=== PATIENT | male | born 1975 | race African-American/Black ===

== ENCOUNTER 2022-06-14 08:04 | Inpatient (IN) | payer MEDICAID, OTHER ==
[~2022-06-14] VITALS: Ht 182.9 cm; Wt 155.6 kg
[2022-06-14] MEDS ORDERED: MORPHINE SULFATE 4 MG/ML CPJ (NOT FOR IM USE) IV STA (08:10)
[2022-06-14] MEDS ORDERED: ONDANSETRON HCL 4MG/2ML INJ IV STA (08:10)
[2022-06-14] MEDS ORDERED: NITROGLYCERIN OINT 1GM/INCH UDPKT TD ONE (08:15)
[2022-06-14 09:56] LABS: BASOPHILS % 0.5 % (0.0-2.0); EOSINOPHILS % 0.7 % (0.0-5.0); HEMOGLOBIN. 13.6 g/dL (14.0-18.0); LYMPHOCYTES % 17.5 % (20.0-50.0); MEAN CORPUSCULAR HEMOGLOBIN 26.4 pg (28.0-32.0); MEAN CORPUSCULAR VOLUME 81.4 fL (80.0-94.0); MEAN PLATELET VOLUME 7.5 fl (7.4-10.4); NEUTROPHILS % 72.3 % (40.0-76.0); PLATELET 238 x1000/uL (130-400); RED BLOOD CELL COUNT 5.16 mill/uL (4.7-6.1); RED CELL DISTRIBUTION WIDTH 17.1 % (11.6-14.6)
[2022-06-14 10:02] LABS: CHLORIDE 113 mEq/L (98-107)
[2022-06-14] MEDS ORDERED: FUROSEMIDE 40MG/4ML VIAL IVP ONE (12:45)
[2022-06-14] MEDS ORDERED: ONDANSETRON HCL 4MG/2ML INJ IV NR (13:45)
[2022-06-14] MEDS ORDERED: NITROGLYCERIN OINT 1GM/INCH UDPKT TD NR (13:45)
[2022-06-14] MEDS ORDERED: MORPHINE SULFATE 4 MG/ML CPJ (NOT FOR IM USE) IV NR (13:45)
[2022-06-14] MEDS ORDERED: ACETAMINOPHEN 325MG TABLET PO PRN ×2 (15:00)
[2022-06-14] MEDS ORDERED: ONDANSETRON HCL 4MG/2ML INJ IV PRN (15:00)
[2022-06-14] MEDS ORDERED: LORAZEPAM 0.5MG TABLET PO PRN (15:00)
[2022-06-14] MEDS ORDERED: DOCUSATE SODIUM 100MG CAPSULE PO PRN (15:00)
[2022-06-14] MEDS ORDERED: IPRATROPIUM/ALBUTEROL 0.5-3(2.5)MG/3ML NEB HHN PRN (15:00)
[2022-06-14] MEDS ORDERED: NALOXONE HCL 0.4MG/ML VIAL IV PRN (15:15)
[2022-06-14] MEDS ORDERED: SPIRONOLACTONE 25MG TABLET PO SCH (15:45)
[2022-06-14] MEDS: HYDROCODONE/ACETAMINOPHEN 5/325MG TABLET PO PRN ×2 (16:45→21:24)
[2022-06-14] MEDS: FUROSEMIDE 40MG/4ML VIAL IVP SCH (17:18)
[2022-06-14 19:10] LABS: *AMPHETAMINES SCREEN URINE NEGATIVE (NEGATIVE); *BARBITURATES SCREEN URINE NEGATIVE (NEGATIVE); *BENZODIAZEPINES SCREEN URINE NEGATIVE (NEGATIVE); *COCAINE SCREEN URINE NEGATIVE (NEGATIVE); CANNABINOID URINE SCREEN PRESUMTIVE POSITIVE (NEGATIVE); METHADONE URINE SCREEN NEGATIVE (NEGATIVE); OPIATES URINE SCREEN PRESUMTIVE POSITIVE (NEGATIVE); PHENCYCLIDINE URINE SCREEN NEGATIVE (NEGATIVE)
[2022-06-14 20:00] VITALS: BP 157/110
[2022-06-14] MEDS: CLONIDINE 0.1MG TABLET PO PRN (21:25)
[2022-06-14] MEDS ORDERED: ALBU18HF2 INH (23:26)
[2022-06-14] MEDS ORDERED: FURO40TA5 PO (23:26)
[2022-06-14] MEDS ORDERED: ATOR40TA70 PO (23:26)
[2022-06-14] MEDS ORDERED: CARV3.1242 PO (23:26)
[2022-06-14] MEDS ORDERED: SPIR25TA6 PO (23:26)
[2022-06-14] MEDS ORDERED: ASPI-1406 PO (23:26)
[2022-06-14] MEDS ORDERED: FURO20TA4 PO (23:26)
[2022-06-14] MEDS ORDERED: AMLO5TAB88 PO (23:26)
[2022-06-14] MEDS ORDERED: HYDR-4134 PO (23:26)
[2022-06-15] VITALS: BP 135/93
[2022-06-15 04:00] VITALS: BP 146/110
[2022-06-15 07:20] LABS: BASOPHILS % 0.5 % (0.0-2.0); EOSINOPHILS % 1.2 % (0.0-5.0); HEMATOCRIT. 38.6 % (42.0-52.0); HEMOGLOBIN. 12.5 g/dL (14.0-18.0); LYMPHOCYTES % 24.2 % (20.0-50.0); MEAN CORPUSCULAR HEMOGLOBIN 26.5 pg (28.0-32.0); MEAN CORPUSCULAR VOLUME 81.8 fL (80.0-94.0); MONOCYTES % 10.5 % (2.0-8.0); NEUTROPHILS % 63.6 % (40.0-76.0); PLATELET 231 x1000/uL (130-400); RED BLOOD CELL COUNT 4.73 mill/uL (4.7-6.1); RED CELL DISTRIBUTION WIDTH 17.1 % (11.6-14.6)
[2022-06-15 07:47] LABS: CHLORIDE 106 mEq/L (98-107)
[2022-06-15 08:00] VITALS: BP 140/104
[2022-06-15] MEDS ORDERED: LOSARTAN POTASSIUM 25 MG TABLET PO SCH (09:00)
[2022-06-15] MEDS ORDERED: ASPIRIN 81MG TABLET PO SCH (09:00)
[2022-06-15] MEDS: LOSARTAN POTASSIUM 50 MG TABLET PO SCH (10:10)
[2022-06-15] MEDS: FUROSEMIDE 40MG/4ML VIAL IVP SCH ×2 (10:10→16:40)
[2022-06-15] MEDS: SPIRONOLACTONE 50MG TABLET PO SCH (10:11)
[2022-06-15] MEDS: HYDROCODONE/ACETAMINOPHEN 5/325MG TABLET PO PRN ×3 (10:18→21:21)
[2022-06-15 12:00] VITALS: BP 147/108
[2022-06-15] MEDS ORDERED: PANTOPRAZOLE SODIUM 40 MG/VIAL IV SCH (12:15)
[2022-06-15 15:56] VITALS: BP 141/96
[2022-06-15 18:24] LABS: HEMATOCRIT 39.4 % (42.0-52.0); HEMOGLOBIN 12.5 g/dL (14.0-18.0)
[2022-06-15 18:36] LABS: TOTAL IRON BINDING CAPACITY 422 ug/dL (250-450)
[2022-06-15 18:57] LABS: FOLIC ACID (FOLATE) SERUM 13.8 ng/mL (>5.38)
[2022-06-15 20:00] VITALS: BP 146/102
[2022-06-15] MEDS: PANTOPRAZOLE SODIUM 40 MG/VIAL IV SCH (21:20)
[2022-06-15 22:54] LABS: HEMATOCRIT 39.2 % (42.0-52.0); HEMOGLOBIN 12.4 g/dL (14.0-18.0)
[2022-06-15 23:04] LABS: INR 1.1; PROTHROMBIN TIME 11.4 sec (9.6-11.0)
[2022-06-16] VITALS (7 sets, daily range): BP systolic 142–163; BP diastolic 86–114
[2022-06-16] MEDS: CLONIDINE 0.1MG TABLET PO PRN (00:58)
[2022-06-16] MEDS: HYDROCODONE/ACETAMINOPHEN 5/325MG TABLET PO PRN ×3 (06:11→20:47)
[2022-06-16 06:18] LABS: CHLORIDE 105 mEq/L (98-107)
[2022-06-16 06:30] LABS: BASOPHILS % 0.5 % (0.0-2.0); EOSINOPHILS % 1.2 % (0.0-5.0); HEMOGLOBIN. 12.6 g/dL (14.0-18.0); LYMPHOCYTES % 25.3 % (20.0-50.0); MEAN CORPUSCULAR HEMOGLOBIN 26.3 pg (28.0-32.0); MEAN CORPUSCULAR VOLUME 81.4 fL (80.0-94.0); MEAN PLATELET VOLUME 7.9 fl (7.4-10.4); MONOCYTES % 9.8 % (2.0-8.0); NEUTROPHILS % 63.2 % (40.0-76.0); PLATELET 224 x1000/uL (130-400); RED BLOOD CELL COUNT 4.79 mill/uL (4.7-6.1); RED CELL DISTRIBUTION WIDTH 16.6 % (11.6-14.6)
[2022-06-16] MEDS: PANTOPRAZOLE SODIUM 40 MG/VIAL IV SCH ×2 (08:22→20:42)
[2022-06-16] MEDS: SPIRONOLACTONE 50MG TABLET PO SCH (08:22)
[2022-06-16] MEDS: FUROSEMIDE 40MG/4ML VIAL IVP SCH ×2 (08:22→16:16)
[2022-06-16] MEDS: LOSARTAN POTASSIUM 50 MG TABLET PO SCH (08:22)
[2022-06-16 09:46] LABS: HEMATOCRIT 39.2 % (42.0-52.0); HEMOGLOBIN 12.6 g/dL (14.0-18.0)
[2022-06-16] MEDS: BISACODYL 5MG TABLET PO SCH ×2 (16:30→20:42)
[2022-06-16] MEDS: METOCLOPRAMIDE HCL 10MG/2ML VIAL IV SCH ×2 (16:30→20:42)
[2022-06-16] MEDS: SORBITOL 70% SOLN 30ML PO SCH ×2 (16:30→20:47)
[2022-06-16 17:08] LABS: HEMATOCRIT 39.3 % (42.0-52.0); HEMOGLOBIN 12.7 g/dL (14.0-18.0)
[2022-06-16 23:56] LABS: HEMOGLOBIN 12.5 g/dL (14.0-18.0)
[2022-06-17] VITALS: BP 134/103
[2022-06-17] MEDS: BISACODYL 5MG TABLET PO SCH ×2 (00:15→05:36)
[2022-06-17] MEDS: METOCLOPRAMIDE HCL 10MG/2ML VIAL IV SCH ×2 (00:15→05:36)
[2022-06-17] MEDS: SORBITOL 70% SOLN 30ML PO SCH ×2 (00:45→05:35)
[2022-06-17 03:12] LABS: HEMATOCRIT. 39.8 % (42.0-52.0); HEMOGLOBIN. 12.7 g/dL (14.0-18.0); MEAN CORPUSCULAR HEMOGLOBIN 25.9 pg (28.0-32.0); MEAN CORPUSCULAR VOLUME 80.9 fL (80.0-94.0); MEAN PLATELET VOLUME 7.6 fl (7.4-10.4); PLATELET 203 x1000/uL (130-400); RED BLOOD CELL COUNT 4.91 mill/uL (4.7-6.1)
[2022-06-17 03:19] LABS: CHLORIDE 104 mEq/L (98-107); PROTHROMBIN TIME 11.1 sec (9.6-11.0)
[2022-06-17 04:00] VITALS: BP 113/93
[2022-06-17] MEDS: HYDROCODONE/ACETAMINOPHEN 5/325MG TABLET PO PRN ×3 (05:43→20:58)
[2022-06-17 06:17] LABS: PLATELET ESTIMATE NORMAL
[2022-06-17 08:00] VITALS: BP 130/77
[2022-06-17] MEDS: PANTOPRAZOLE SODIUM 40 MG/VIAL IV SCH ×2 (08:16→20:57)
[2022-06-17] MEDS: SPIRONOLACTONE 50MG TABLET PO SCH (08:16)
[2022-06-17] MEDS: LOSARTAN POTASSIUM 50 MG TABLET PO SCH (08:16)
[2022-06-17] MEDS: FUROSEMIDE 40MG/4ML VIAL IVP SCH ×2 (08:16→16:26)
[2022-06-17 12:00] VITALS: BP 141/101
[2022-06-17] MEDS ORDERED: PROPOFOL 200MG/20ML VIAL IV ONE (13:29)
[2022-06-17] MEDS ORDERED: LIDOCAINE HCL 1% 20ML VIAL (Pyxis) INJ ONE (13:29)
[2022-06-17] MEDS ORDERED: HYDROMORPHONE HCL/PF 2MG/ML CPJ IV PRN (14:00)
[2022-06-17] MEDS ORDERED: LABETALOL 5MG/ML SYR 20 MG/4 ML SYRINGE IV PRN (14:00)
[2022-06-17] MEDS ORDERED: ONDANSETRON HCL 4MG/2ML INJ IV PRN (14:00)
[2022-06-17] MEDS ORDERED: MEPERIDINE HCL/PF 25MG/ML CPJ IV PRN (14:00)
[2022-06-17] MEDS: CLONIDINE 0.1MG TABLET PO PRN (14:41)
[2022-06-17 15:54] VITALS: BP 135/97
[2022-06-17 20:00] VITALS: BP 133/70
[2022-06-17] MEDS: HEMORRHOIDAL SUPP PR SCH (21:00)
[2022-06-18] VITALS: BP 137/97
[2022-06-18] MEDS: HYDROCODONE/ACETAMINOPHEN 5/325MG TABLET PO PRN ×2 (00:59→08:50)
[2022-06-18 04:00] VITALS: BP 150/95
[2022-06-18 07:41] LABS: BASOPHILS % 0.6 % (0.0-2.0); EOSINOPHILS % 1.9 % (0.0-5.0); HEMOGLOBIN. 12.6 g/dL (14.0-18.0); LYMPHOCYTES % 24.4 % (20.0-50.0); MEAN CORPUSCULAR HEMOGLOBIN 25.9 pg (28.0-32.0); MEAN PLATELET VOLUME 8.3 fl (7.4-10.4); MONOCYTES % 10.4 % (2.0-8.0); NEUTROPHILS % 62.7 % (40.0-76.0); PLATELET 205 x1000/uL (130-400); RED BLOOD CELL COUNT 4.88 mill/uL (4.7-6.1); RED CELL DISTRIBUTION WIDTH 17.2 % (11.6-14.6)
[2022-06-18 07:44] LABS: CHLORIDE 103 mEq/L (98-107)
[2022-06-18 08:00] VITALS: BP 151/111
[2022-06-18] MEDS: FUROSEMIDE 40MG/4ML VIAL IVP SCH (08:48)
[2022-06-18] MEDS: PANTOPRAZOLE SODIUM 40 MG/VIAL IV SCH (08:48)
[2022-06-18] MEDS: LOSARTAN POTASSIUM 50 MG TABLET PO SCH (08:49)
[2022-06-18] MEDS: SPIRONOLACTONE 50MG TABLET PO SCH (08:49)
[2022-06-18] MEDS: HEMORRHOIDAL SUPP PR SCH (08:50)
[2022-06-18] MEDS ORDERED: PHEN51CR14 RC (11:44)
[2022-06-18] MEDS ORDERED: LOSA50TA3 PO (11:44)
[2022-06-18] MEDS ORDERED: COR3 PO (11:44)
[2022-06-18 11:59] VITALS: BP 134/96
[2022-06-18] MEDS ORDERED: CARVEDILOL 3.125 MG TABLET PO SCH (21:00)
== END 2022-06-18 12:56 | disposition home or self-care (01) | DRG 194 ==
LOC: ER 08:04 → 7WST 12:34 → ENRESERV 17:18
PROVIDERS: ADMIT Internal Medicine; ATTEND Internal Medicine
PROC: 0DJD8ZZ Inspection of Lower Intestinal Tract, Via Natural or Artificial Opening Endoscopic (ICD-10-PCS; principal; 2022-06-17)
DX: I11.0 Hypertensive heart disease with heart failure (principal); R18.8 Other ascites; K64.8 Other hemorrhoids; I50.23 Acute on chronic systolic (congestive) heart failure; K92.1 Melena; N52.9 Male erectile dysfunction, unspecified; E66.01 Morbid (severe) obesity due to excess calories; G47.33 Obstructive sleep apnea (adult) (pediatric); F12.90 Cannabis use, unspecified, uncomplicated; F17.210 Nicotine dependence, cigarettes, uncomplicated; R74.01 Elevation of levels of liver transaminase levels; R79.89 Other specified abnormal findings of blood chemistry; D64.9 Anemia, unspecified; Z20.822 Contact with and (suspected) exposure to COVID-19; R77.8 Other specified abnormalities of plasma proteins; Z82.49 Family history of ischemic heart disease and other diseases of the circulatory system; Z79.899 Other long term (current) drug therapy; Z79.82 Long term (current) use of aspirin; Z68.42 Body mass index [BMI] 45.0-49.9, adult
CPT/HCPCS: 36415; 71045; 74176; 80048; 80053; 80061; 80076; 80305; 82607; 82728; 82746; 83036; 83540; 83550; 83735; 83880; 84484; 85014; 85018; 85025; 85044; 85379; 87426; 93005; 93306; 93970; 99285; C9113; J1940; J2270; J2405; J2704; J2765; J3490